=== PATIENT | female | born 1980 | race Caucasian/White ===

== ENCOUNTER → 2021-01-18 11:08 | Outpatient (CLI) | payer OTHER, SELFPAY ==
--- NOTE | 2021-01-18 11:11 | DI.US.S_ITS ---
PROCEDURE: US OB <= 14 WEEKS FETUS INDICATIONS: DATING AND VIABILITY OUTSIDE/PRIOR DATING DATA: Last menstrual period (LMP): 11/23/2020. LMP-based estimated date of delivery (MONIQUE): 08/20/2021. First dating scan (date and location): 01/18/2022. Estimated date of delivery (MONIQUE) from first dating scan: 08/23/2021. TECHNIQUE: Real-time scanning was performed of the fetus and maternal pelvic organs, with image documentation. Endovaginal scanning was also performed to better visualize the fetus and maternal ovaries. COMPARISON: None. FINDINGS: Embryo: A single living intrauterine gestation is present with a heart rate of 173 beats per minute. Evans-rump length is 23 mm, corresponding to a 9 week 0 day gestation. Measurement variability in dating: +/- 4 weeks by LMP, +/- 7 days by mean sac diameter (use before 6 weeks gestation if crown-rump length not able to be measured), +/- 5 days by crown-rump length (up to 8 weeks 6 days gestation), +/- 7 days by crown-rump length (up to 13 weeks 6 days gestation). Maternal organs: Ovaries probable corpus luteal cyst on the left. Right ovary grossly unremarkable. . IMPRESSION: Single living intrauterine gestation as above. Routine clinical and sonographic follow-up recommended. Dictated by: Blu Glez M.D. on 01/18/2021 at 14:05 Approved by: Blu Glez M.D. on 01/18/2021 at 16:53
== END ==
PROVIDERS: Referring Provider Obstetrics & Gynecology; Visit Provider Obstetrics & Gynecology
DX: O09.521 Supervision of elderly multigravida, first trimester (principal); Z3A.09 9 weeks gestation of pregnancy
CPT/HCPCS: 76801; 76817

== ENCOUNTER → 2021-01-25 08:43 | Outpatient (CLI) | payer OTHER, SELFPAY ==
[2021-01-25 14:04] LABS: Urine N gonorrhoeae NOT DETECTED
[2021-01-25 14:05] LABS: Urine Chlamydia NOT DETECTED
== END ==
PROVIDERS: Visit Provider Obstetrics & Gynecology
DX: Z34.81 Encounter for supervision of other normal pregnancy, first trimester (principal); Z3A.10 10 weeks gestation of pregnancy
CPT/HCPCS: 87491; 87591

== ENCOUNTER → 2021-01-25 08:44 | Outpatient (CLI) | payer OTHER, SELFPAY ==
[2021-01-25 08:57] LABS: Specimen Label NATERA
[2021-01-25 10:18] LABS: Appearance Urine UA CLEAR; Bilirubin Urine UA NEGATIVE (NEGATIVE); Color Urine UA YELLOW; Glucose Urine UA NEGATIVE (Negative); Ketones Urine UA NEGATIVE (NEGATIVE); Leukocyte Esterase Urine UA NEGATIVE (NEGATIVE); Nitrite Urine UA NEGATIVE (Negative); Occult Blood Urine UA NEGATIVE (Negative); Protein Urine UA NEGATIVE (Negative); Specific Gravity Urine UA <=1.005 (1.000-1.035); Urobilinogen Urine UA 0.2 E.U./dL (0.2)
[2021-01-25 18:00] LABS: Rubella Antibody IgG 81.1 IU/mL (>15)
[2021-01-26 14:36] LABS: Varicella IgG Antibody 1506 index (Immune >165)
== END ==
PROVIDERS: Referring Provider Obstetrics & Gynecology; Visit Provider Obstetrics & Gynecology
DX: O09.521 Supervision of elderly multigravida, first trimester (principal); Z3A.10 10 weeks gestation of pregnancy
CPT/HCPCS: 36415; 81003; 86762; 86787; 86850; 86900; 86901; 87086; 87491; 87591